=== PATIENT | female | born 1970 | race Caucasian/White ===

== ENCOUNTER 2017-06-07 15:05 | Emergency (ER) | payer OTHER ==
[2017-06-07 15:13] VITALS: BP 125/78
[2017-06-07] MEDS ORDERED: Ibuprofen TAB* 400 MG PO ONE (15:33)
--- NOTE | 2017-06-07 16:12 | RAD ---
Indication: Chest pain. 2 views of the chest including dual energy PA views demonstrate no mediastinal shift. Heart is of normal size and configuration. Lung ashby are clear. IMPRESSION: No active cardiopulmonary disease is noted.
--- NOTE | 2017-06-07 16:15 | RAD ---
Indication: Back pain. 5 views of lumbar spine demonstrates scoliosis of lumbar spine. Vertebral bodies appear normal in height. Disc spaces are well-preserved. Pedicles appear intact. IMPRESSION: Scoliosis of lumbar spine without fracture.
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
== END 2017-06-07 16:24 | disposition left against medical advice (07) ==
LOC: UCEAST 15:05
DX: M54.2 Cervicalgia (principal); S09.90XA Unspecified injury of head, initial encounter; S39.012A Strain of muscle, fascia and tendon of lower back, initial encounter; S29.011A Strain of muscle and tendon of front wall of thorax, initial encounter; V43.62XA Car passenger injured in collision with other type car in traffic accident, initial encounter; Y93.89 Activity, other specified; Y92.410 Unspecified street and highway as the place of occurrence of the external cause; Z88.1 Allergy status to other antibiotic agents; F17.210 Nicotine dependence, cigarettes, uncomplicated
CPT/HCPCS: 71020; 72110; 99213; A9270-GY; G0463

== ENCOUNTER → 2017-06-07 16:48 | Emergency (ER) | payer OTHER ==
[2017-06-07 16:56] VITALS: BP 149/88
== END | disposition left against medical advice (07) ==
LOC: ED 16:48
DX: M54.2 Cervicalgia (principal); Z53.21 Procedure and treatment not carried out due to patient leaving prior to being seen by health care provider

== ENCOUNTER 2019-10-11 12:06 | Emergency (ER) | payer SELFPAY ==
[2019-10-11 15:07] VITALS: BP 143/95
--- NOTE | 2019-10-11 16:30 | ED ---
Back Pain - HPI Summary HPI Summary: This patient is a 48-year-old female who is otherwise healthy presenting to the ED with back strain. Patient states she was lifting heavy objects at work as well as mopping when she started to feel a pain in the left side of her mid back. She states this radiates upwards and downwards radiating into the scapula as well as to the buttocks. She denies any pain, numbness or tingling into the bilateral lower extremities. She states the pain does extend into the left lower extremity intermittently, however denies this currently. She has never had a spine injury or back injury in the past. Denies any urinary symptoms or gross hematuria. Denies any numbness or tingling to the medial thighs. No bladder or bowel dysfunction. - History of Current Complaint Chief Complaint: EDBackInjuryPain Stated Complaint: BACK INJURY PER PT Time Seen by Provider: 10/11/19 14:16 Hx Obtained From: Patient Hx Last Menstrual Period: 2 1/2 MONTHS AGO Onset/Duration: Sudden Onset Onset/Duration: Started Days Ago - yesterday Timing: Constant Back Pain Location: Is Discrete @ - left mid back Severity Initially: Moderate Severity Currently: Moderate Pain Intensity: 7 Pain Scale Used: 0-10 Numeric Aggravating Symptom(s): Movement, Lifting, Bending Alleviating Symptom(s): Rest, Position, Heat Associated Signs And Symptoms: Negative: Swelling, Redness, Bruising, Fever, Weakness, Numbness, Bladder Incontinence, Bowel Incontinence, Weight Loss, Pain with Weight Bearing - Risk Factors AAA Risk Factors: Negative TAD Risk Factors: Negative Cauda Equina Risk Factors: Negative Epidural Abscess Risk Factors: Negative - Allergies/Home Medications Allergies/Adverse Reactions: Allergies Allergy/AdvReac Type Severity Reaction Status Date / Time tetracycline Allergy Hives Verified 10/11/19 12:10 PMH/Surg Hx/FS Hx/Imm Hx Previously Healthy: Yes Neurological History: Reports: Hx Headaches - Surgical History Surgery Procedure, Year, and Place: tubal ligation - Immunization History Hx Pertussis Vaccination: No Immunizations Up to Date: Yes Infectious Disease History: No Infectious Disease History: Denies: Traveled Outside the [place] in Last 30 Days - Family History Known Family History: Positive: None Negative: Cardiac Disease, Hypertension, Diabetes - Social History Occupation: Employed Full-time Lives: With Family Alcohol Use: Rare Hx Substance Use: No Substance Use Type: Reports: None Hx Tobacco Use: Yes Smoking Status (MU): Light Every Day Tobacco Smoker Type: Cigarettes Amount Used/How Often: 1/4 PPD Have You Smoked in the Last Year: Yes Review of Systems Negative: Fever, Chills, Fatigue, Skin Diaphoresis Negative: Palpitations, Chest Pain Negative: Shortness Of Breath, Cough Genitourinary: Negative Positive: no symptoms reported, see HPI Positive: Arthralgia, Myalgia - left mid back radiating to the L buttocks Skin: Negative Psychological: Normal All Other Systems Reviewed And Are Negative: Yes Physical Exam Triage Information Reviewed: Yes Vital Signs On Initial Exam: Initial Vitals Temp Pulse Resp BP Pulse Ox 97.7 F 68 17 160/97 99 10/11/19 12:07 10/11/19 12:07 10/11/19 12:07 10/11/19 12:07 10/11/19 12:07 Vital Signs Reviewed: Yes Appearance: Positive: Well-Appearing, Well-Nourished Skin: Positive: Warm, Skin Color Reflects Adequate Perfusion Head/Face: Positive: Normal Head/Face Inspection Eyes: Positive: EOMI, Conjunctiva Clear Neck: Positive: Supple, No Lymphadenopathy Respiratory/Lung Sounds: Positive: Clear to Auscultation Cardiovascular: Positive: RRR, Pulses are Symmetrical in both Upper and Lower Extremities Musculoskeletal: Positive: Strength/ROM Intact, Pain @ - left mid back Neurological: Positive: Sensory/Motor Intact, Alert, Oriented to Person Place, Time, CN Intact II-III, Speech Normal Psychiatric: Positive: Affect/Mood Appropriate AVPU Assessment: Alert Procedures - Sedation Patient Received Moderate/Deep Sedation with Procedure: No Diagnostics - Vital Signs Vital Signs Temp Pulse Resp BP Pulse Ox 10/11/19 15:05 98.3 F 57 16 143/95 100 10/11/19 12:07 97.7 F 68 17 160/97 99 - Laboratory Lab Statement: Any lab studies that have been ordered have been reviewed, and results considered in the medical decision making process. Back Pain Course/Dx - Course Course Of Treatment: Physical examination, patient appears well, nondiaphoretic. Patient is able to ambulate. She is endorsing pain to the left mid back radiating into the buttocks as well as to left scapula. She denies any difficulty with ambulation. No pain on the posterior cervical, thoracic or lumbar spine. Denies any decreased strength in the left lower extremity. Plantar flexion and dorsiflexion intact. Patient is able to flex and extend at the hips, as well as rotate at the hips. There are no signs of trauma, ecchymosis, rashes to the left mid back area. Patient has full strength in the bilateral lower extremities. Symptoms are worse with rotation at the hips, specifically his left side. She describes this pain as an 8/10, and as an ache. 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 She is requesting a note for work. At this time I did not feel it imperative the patient receives any type of imaging as this is likely a muscular strain, not involving the posterior cervical, thoracic or lumbar spine. She will be given a prescription for a muscle relaxer and encouraged ibuprofen and moist heat. She is given a note for work and will follow up with her PCP next week. - Diagnoses Differential Diagnosis/HQI/PQRI: Positive: Herniated Disc, Strain, Sprain Provider Diagnoses: Strain of mid-back Discharge ED - Sign-Out/Discharge Documenting (check all that apply): Patient Departure - Discharge Plan Condition: Stable Disposition: HOME Prescriptions: Cyclobenzaprine TAB* [Flexeril TAB*] 10 mg PO BID PRN #10 tab PRN Reason: Spasms predniSONE TAB* [Deltasone TAB*] 50 mg PO DAILY #5 tab MDD 1 Patient Education Materials: Muscle Strain (ED) Forms: *Work Release Referrals: Quan HENRY,Jasmeet Fajardo [Primary Care Provider] - Additional Instructions: Please take prednisone once daily x 5 days Flexeril twice daily x 5 days as needed for muscle strain Moist heat to the area as much as possible Off work x 5 days Follow up with your PCP as soon as possible Ibuprofen 600mg four times daily - Billing Disposition and Condition Condition: STABLE Disposition: Home - Attestation Statements Provider Attestation: I was available for consultation for this patient. I did not evaluate the patient or participate in any medical decision making or disposition decisions unless I am specifically named in the chart as having consulted on the patient. If I have consulted on the patient, please see my own ED note on the patient encounter. Porsha Stephens MD
== END 2019-10-11 14:59 | disposition home or self-care (01) ==
LOC: ED 12:06
DX: S29.012A Strain of muscle and tendon of back wall of thorax, initial encounter (principal); X50.9XXA Other and unspecified overexertion or strenuous movements or postures, initial encounter; Y92.89 Other specified places as the place of occurrence of the external cause; Y99.0 Civilian activity done for income or pay; F17.210 Nicotine dependence, cigarettes, uncomplicated; Z88.1 Allergy status to other antibiotic agents
CPT/HCPCS: 99282